=== PATIENT | male | born 2000 | race Caucasian/White ===

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

== ENCOUNTER 2019-01-03 23:39 | Inpatient (IN) | payer BC ==
--- NOTE | 2019-01-04 01:03 | ED ---
Psychiatric Complaint - HPI Summary HPI Summary: A 18 y/o male presents to [facility] with a chief complaint of SI the night of . He reports that he is in the ED mainly involuntarily because his parents told him that they would call the police if he did not get a MHE. The patient says that he texted his friend about his SI, and his friends father then informed the patients parents. The patient reports that he had SI without a plan, but currently has no SI. He says that he takes 80mg Latuda, 100mg Lamictal , 20mg Propanolol, and Trufant. The patient states that he was initially diagnosed as bipolar, but upon a later psych evaluation he was told that he is not bipolar but that he is depressed. He has been admitted to psych before. - History Of Current Complaint Chief Complaint: EDMentalHealth Time Seen by Provider: 01/04/19 00:39 Hx Obtained From: Patient Onset/Duration: Sudden Onset, Lasting Hours, Resolved Timing: Hours Severity Initially: Mild Severity Currently: None Character: Depressed Aggravating Factor(s): Nothing Alleviating Factor(s): Nothing Associated Signs And Symptoms: Positive: Negative Related History: Positive For: Prior Psychiatric Issues Has Suicidal: Reports: Thoughts - EMS EDUCATOR but not currently. Denies: With A Plan Has Homicidal: Denies: Thoughts - Allergies/Home Medications Allergies/Adverse Reactions: Allergies Allergy/AdvReac Type Severity Reaction Status Date / Time No Known Allergies Allergy Verified 01/03/19 23:45 Home Medications: Home Medications Lamictal 100 mg PO QAM 01/04/19 [History Confirmed 01/04/19] Latuda 80 mg PO BEDTIME 01/04/19 [History Confirmed 01/04/19] Trufant 300 mg PO QAM 01/04/19 [History Confirmed 01/04/19] Trufant 600 mg PO BEDTIME 01/04/19 [History Confirmed 01/04/19] Propranolol HCl 20 mg PO PRN 01/04/19 [History] PMH/Surg Hx/FS Hx/Imm Hx Endocrine/Hematology History: Denies: Hx Diabetes, Hx Thyroid Disease Cardiovascular History: Denies: Hx Hypertension, Hx Pacemaker/ICD Respiratory History: Denies: Hx Asthma, Hx Chronic Obstructive Pulmonary Disease (COPD) GI History: Denies: Hx Ulcer History: Denies: Hx Renal Disease Musculoskeletal History: Reports: Other Musculoskeletal History - current left knee issue Sensory History: Denies: Hx Contacts or Glasses, Hx Hearing Aid Opthamlomology History: Denies: Hx Contacts or Glasses Psychiatric History: Reports: Hx Anxiety, Hx Eating Disorder, Hx Depression Denies: Hx Panic Disorder, Hx Inpatient Treatment, Hx Community Mental Health Tx - none prior to [facility] - Surgical History Surgery Procedure, Year, and Place: L knee Hx Anesthesia Reactions: No - never had surgery - Immunization History Date of Tetanus Vaccine: utd Date of Influenza Vaccine: unk Infectious Disease History: No Infectious Disease History: Denies: Hx Clostridium Difficile, Hx Hepatitis, Hx Human Immunodeficiency Virus (HIV), Hx of Known/Suspected MRSA, Hx Tuberculosis, Traveled Outside the [place] in Last 30 Days - Family History Known Family History: Positive: Other - Seasonal depression Negative: Diabetes - Social History Alcohol Use: Rare Hx Substance Use: No Substance Use Type: Reports: None Substance Use Comment - Amount & Last Used: 2 weeks ago, unknown amount Hx Tobacco Use: No Smoking Status (MU): Never Smoked Tobacco Review of Systems Negative: Fever Positive: Other - positive: had SI without a plan EMS EDUCATOR, but has no current SI All Other Systems Reviewed And Are Negative: Yes Physical Exam - Summary Physical Exam Summary: VITAL SIGNS: Reviewed. GENERAL: Patient is a well-developed and nourished MALE who is lying comfortable in the stretcher. Patient is not in any acute respiratory distress. HEAD AND FACE: No signs of trauma. No ecchymosis, hematomas or skull depressions. No sinus tenderness. EYES: PERRLA, EOMI x 2, No injected conjunctiva, no nystagmus. EARS: Hearing grossly intact. Ear canals and tympanic membranes are within normal limits. MOUTH: Oropharynx within normal limits. NECK: Supple, trachea is midline, no adenopathy, no JVD, no carotid bruit, no c- spine tenderness, neck with full ROM CHEST: Symmetric, no tenderness at palpation LUNGS: Clear to auscultation bilaterally. No wheezing or crackles. CVS: Regular rate and rhythm, S1 and S2 present, no murmurs or gallops appreciated. ABDOMEN: Soft, non-tender. No signs of distention. No rebound no guarding, and no masses palpated. Bowel sounds are normal. EXTREMITIES: FROM in all major joints, no edema, no cyanosis or clubbing. NEURO: Alert and oriented x 3. No acute neurological deficits. Speech is normal and follows commands. SKIN: Dry and warm Psych: Pt is not suicidal now but reports that he was suicidal Triage Information Reviewed: Yes Vital Signs On Initial Exam: Initial Vitals Temp Pulse Resp BP Pulse Ox 98.7 F 78 16 145/79 97 01/03/19 23:40 01/03/19 23:40 01/03/19 23:40 01/03/19 23:40 01/03/19 23:40 Vital Signs Reviewed: Yes Diagnostics - Vital Signs Vital Signs Temp Pulse Resp BP Pulse Ox 01/03/19 23:40 98.7 F 78 16 145/79 97 - Laboratory Result Diagrams: 01/04/19 01:32 01/04/19 01:32 Lab Statement: Any lab studies that have been ordered have been reviewed, and results considered in the medical decision making process. Re-Evaluation - Re-Evaluation First Eval Re-Evaluation Time: 02:45 Change: Unchanged Comment: Pt medically cleared for MHE. Course/Dx - Course Course Of Treatment: A 18 y/o male presents to [facility] with a chief complaint of SI the night of 01/03/19. He denies any current SI. The physical exam revealed that the Pt is not suicidal now but reports that he was suicidal. Bloodwork, chemistries, urines and toxicology obtained. Trufant of 0.31 at 01:32. The patient has been medically cleared for MHE. Per mental health clinical sales consultant, Dr. Winston has decided that the patient will be an involuntary admit. Dx: depression. Since there are no current beds available, the patient will be placed on mental health hold. This patient will be signed out from Dr. Beavers to Dr. Neff at 07:00 01/04/19 pending admission. - Differential Dx/Clinical Impression Provider Diagnosis: Depression - Physician Notifications Discussed Care Of Patient With: Cong Winston Time Discussed With Above Provider: 03:43 Instructed by Provider To: Other - Per mental health clinical sales consultant, Dr. Winston has decided that the patient will be an involuntary admit. Dx: depression Discharge - Sign-Out/Discharge Documenting (check all that apply): Sign-Out Patient Signing out patient TO: Jose Neff - pending admission Patient Received Moderate/Deep Sedation with Procedure: No - Discharge Plan Condition: Stable Referrals: Mira Segura FACILITY MAINTENANCE MANAGER [Primary Care Provider] - - Billing Disposition and Condition Condition: STABLE - Attestation Statements Document Initiated by Scribe: Yes Documenting Scribe: Eliel Marcus Provider For Whom Alma is Documenting (Include Credential): Celeste Beavers MD Scribe Attestation: Eliel Charles, scribed for Celeste Beavers MD on 01/04/19 at 0549. Scribe Documentation Reviewed: Yes Provider Attestation: The documentation as recorded by the Eliel celestin accurately reflects the service I personally performed and the decisions made by me, Celeste Beavers MD Status of Scribe Document: Viewed
[2019-01-04 01:41] LABS: ABS Basophils 0.1 10^3/ul (0-0.2); ABS Eosinophils 0.5 10^3/ul (0-0.6); ABS Monocytes 0.9 10^3/ul (0-0.8); ABS Neutrophils 6.7 10^3/ul (1.5-7.7); Eosinophil % 4.4 %; Hematocrit 43 % (42-52); Hemoglobin 14.6 g/dL (14.0-18.0); Lymphocyte % 27.1 %; Mean Corpuscular HGB Conc 34 g/dL (31-36); Mean Corpuscular Hemoglobin 30 pg (27-31); Mean Corpuscular Volume 90 fL (80-94); Mean Platelet Volume 7.5 fL (7.4-10.4); Platelet Count 307 10^3/uL (150-450); Red Blood Count 4.83 10^6 /uL (4.18-5.48); Red Cell Distribution Width 13 % (10-15); White Blood Count 11.2 10^3/uL (3.5-10.8)
[2019-01-04 01:59] LABS: ALT 16 U/L (7-52); Albumin 4.4 g/dL (3.2-5.2); Albumin/Globulin Ratio 1.8 (1-3); Alkaline Phosphatase 76 U/L (34-104); BUN/Creatinine Ratio 15.1 (8-20); Blood Urea Nitrogen 18 mg/dL (6-24); CO2 Carbon Dioxide 29 mmol/L (22-32); Chloride 105 mmol/L (101-111); EGFR African American 95.3 (>60); EGFR Non-African American 78.8 (>60); Globulin 2.4 g/dL (2-4); Glucose 101 mg/dL (70-100); Sodium 139 mmol/L (135-145); Total Protein 6.8 g/dL (6.4-8.9)
[2019-01-04 02:06] LABS: Urine Appearance Cloudy; Urine Bilirubin Negative (Negative); Urine Blood Negative (Negative); Urine Color Yellow; Urine Glucose Negative (Negative); Urine Ketones Negative (Negative); Urine Nitrite Negative (Negative); Urine Protein Negative (Negative); Urine Specific Gravity 1.019 (1.010-1.030); Urine Urobilinogen Negative (Negative)
[2019-01-04 02:18] LABS: Acetaminophen < 15 mcg/mL; Alcohol < 10 mg/dL (<10); Lithium 0.31 mmol/L (0.6-1.2); Salicylate < 2.50 mg/dL (<30)
[2019-01-04 02:25] LABS: AST 16 U/L (13-39); Anion Gap 5 mmol/L (2-11); Potassium 4.1 mmol/L (3.5-5.0)
[2019-01-04 02:28] LABS: Urine Benzodiazepine Screen None Detected (None Detect); Urine Opiates Screen None Detected (None Detect)
[2019-01-04 02:34] LABS: TSH (Thyroid Stimulating Horm) 1.85 mcIU/mL (0.34-5.60)
--- NOTE | 2019-01-04 07:04 | ED ---
Progress - Progress Note Progress Note: This pt is signed out from Dr. Beavers to Dr. Neff pending admission to [facility] due to lack of beds at shift change 01/04/19 at 0700. - Consult/PCP Time Called: 13:05 Consult/PCP: Dr. Chacko Course/Dx - Course Course Of Treatment: A 18 y/o male presents to [facility] with a chief complaint of SI the night of 01/03/19. He denies any current SI. The physical exam revealed that the Pt is not suicidal now but reports that he was suicidal. Bloodwork, chemistries, urines and toxicology obtained. [place] of 0.31 at 01:32. The patient has been medically cleared for MHE. Per mental health commercial sales director, Dr. Winston has decided that the patient will be an involuntary admit. Dx: depression. Since there are no current beds available, the patient will be placed on mental health hold. This patient will be signed out from Dr. Beavers to Dr. Neff at 07:00 01/04/19 pending admission. - Diagnoses Provider Diagnoses: Depression - Provider Notifications Discussed Care Of Patient With: Fitz Chacko Time Discussed With Above Provider: 13:05 Instructed by Provider To: Admit As Inpatient - Pt will be admitted to [facility] Psych george per Dr. Chacko, psychiatrist, involuntarily. Discharge - Sign-Out/Discharge Documenting (check all that apply): Patient Departure - admitted All imaging exams completed and their final reports reviewed: Yes Patient Received Moderate/Deep Sedation with Procedure: No - Discharge Plan Condition: Stable Disposition: ADMITTED TO [facility] - Billing Disposition and Condition Condition: STABLE Disposition: Admitted to [facility] - Attestation Statements Document Initiated by Alma: Yes Documenting Scribe: Buzz Law Provider For Whom Alma is Documenting (Include Credential): Jose Neff MD Scribanthony Attestation: Buzz Charles scribed for Jose Neff MD on 01/04/19 at 1545. Scribe Documentation Reviewed: Yes Provider Attestation: The documentation as recorded by the Buzz celestin accurately reflects the service I personally performed and the decisions made by me, Jose Neff MD Status of Scribe Document: Viewed
--- NOTE | 2019-01-04 07:13 | PN ---
ED Flex Patient Progress Note Date of Service: 01/03/19 Subjective: This is a 18 year-old M who is pending admission to [facility] / transfer to another psychiatric facility / discharge to home / or being observed secondary to depression. Pt. examined in room 6 at 0720. He is sleeping comfortably. Objective: Vitals: Most recent vital signs documented below. General NAD Laboratory: Current laboratory results documented below. Assessment: Depression. Plan: Plan for admission to [facility]. Morning medications ordered. Vital Signs Temp Pulse Resp BP Pulse Ox 98.9 F 58 18 140/49 96 01/04/19 05:30 01/04/19 05:30 01/04/19 05:30 01/04/19 05:30 01/04/19 05:30 Lab Results - Entire Visit 01/04/19 01/04/19 01/04/19 01:56 01:56 01:32 WBC RBC Hgb Hct MCV MCH MCHC RDW Plt Count MPV Neut % (Auto) Lymph % (Auto) Arroyo % (Auto) Eos % (Auto) Baso % (Auto) Absolute Neuts (auto) Absolute Lymphs (auto) Absolute Monos (auto) Absolute Eos (auto) Absolute Basos (auto) Absolute Nucleated RBC Nucleated RBC % Sodium 139 Potassium 4.1 Chloride 105 Carbon Dioxide 29 Anion Gap 5 BUN 18 Creatinine 1.19 H Est GFR ( Amer) 95.3 Est GFR (Non-Af Amer) 78.8 BUN/Creatinine Ratio 15.1 Glucose 101 H Calcium 10.0 Total Bilirubin 0.40 AST 16 ALT 16 Alkaline Phosphatase 76 Total Protein 6.8 Albumin 4.4 Globulin 2.4 Albumin/Globulin Ratio 1.8 TSH 1.85 Urine Color Yellow Urine Appearance Cloudy Urine pH 6.0 Ur Specific [place] 1.019 Urine Protein Negative Urine Ketones Negative Urine Blood Negative Urine Nitrate Negative Urine Bilirubin Negative Urine Urobilinogen Negative Ur Leukocyte Esterase Negative Urine Glucose Negative Salicylates < 2.50 Urine Opiates Screen None detected Acetaminophen < 15 Ur Barbiturates Screen None detected Ur Phencyclidine Scrn None detected Ur Amphetamines Screen None detected U Benzodiazepines Scrn None detected [employer] 0.31 L Urine Cocaine Screen None detected U Cannabinoids Screen Presumptive positive A Serum Alcohol < 10 01/04/19 01:32 WBC 11.2 H RBC 4.83 Hgb 14.6 Hct 43 MCV 90 MCH 30 MCHC 34 RDW 13 Plt Count 307 MPV 7.5 Neut % (Auto) 59.9 Lymph % (Auto) 27.1 Arroyo % (Auto) 7.9 Eos % (Auto) 4.4 Baso % (Auto) 0.7 Absolute Neuts (auto) 6.7 Absolute Lymphs (auto) 3.0 Absolute Monos (auto) 0.9 H Absolute Eos (auto) 0.5 Absolute Basos (auto) 0.1 Absolute Nucleated RBC 0.0 Nucleated RBC % 0.0 Sodium Potassium Chloride Carbon Dioxide Anion Gap BUN Creatinine Est GFR ( Amer) Est GFR (Non-Af Amer) BUN/Creatinine Ratio Glucose Calcium Total Bilirubin AST ALT Alkaline Phosphatase Total Protein Albumin Globulin Albumin/Globulin Ratio TSH Urine Color Urine Appearance Urine pH Ur Specific [place] Urine Protein Urine Ketones Urine Blood Urine Nitrate Urine Bilirubin Urine Urobilinogen Ur Leukocyte Esterase Urine Glucose Salicylates Urine Opiates Screen Acetaminophen Ur Barbiturates Screen Ur Phencyclidine Scrn Ur Amphetamines Screen U Benzodiazepines Scrn [employer] Urine Cocaine Screen U Cannabinoids Screen Serum Alcohol
[2019-01-04] MEDS ORDERED: Lithium Carbonate TAB* 300 MG PO ONE ×2 (07:14→07:26)
[2019-01-04] MEDS ORDERED: lamoTRIgine TAB(*) 100 MG PO ONE ×2 (07:14→07:26)
--- NOTE | 2019-01-04 14:45 | HP ---
H&P (Free Text) History and Physical: Justification for admission: Immediate Safety. CC " I sent a text to my friend " The patient was brought to [facility] by his parents. He told a friend of his that he was suicidal and was going to hang himself , who then informed his parents of the text message that Mr. Roblero sent . He stated that he did not need to be here and that his parents are over reacting. He noted that he recently received a order of protection from his ex girlfriend upon telling a friend he was going to kill her (his ex girlfriend Garrochales) and then himself. The [place] police were informed and called and interviewed Mr. Roblero. Upon interviewing Mr. Roblero he denied having homicidal thoughts, intent or plan towards Shaniqua. He reported that in the past he has had thoughts about hurting others but that he has not recently thought of hurting others. He denied access to firearms or stockpiles of medications. He reported improvement of sleep with Latuda and gets on average 8 hours of sleep. He reported having adequate appetite. The patient denied homicidal ideation intent or plan. The patient denied auditory and/ or visual hallucinations. He reported feeling depressed starting 10 months ago when his girlfriend broke up with him and told him to kill himself. He is refusing to have staff obtain collateral information from his parents.Although, the patients mother sent a letter to one of the social workers stating that Mr. Roblero recently saw his ex girlfriends current boyfriend at the gym and made him feel intimidated. Mr. Roblero denied recent rash or skin changes from medication. He reported being compliant with medication. Recently he has been cutting his forearm with a razor to relieve anxiety. MDD He reported feeling depressed. Denied having diminished interests which were found to be enjoyable in the past such as hanging out with friends. He reported having feelings of hopelessness, and worthlessness. He denied unintentional weight loss and appetite. Denied interruption of sleep , or feeling tired throughout the day. Denied loss of energy or lack of motivation to complete tasks. Denied recurrent thoughts of . He reported that some days he would be better off . Anxiety He reported feeling restless, high strung, or worrying too much most of the time and calms himself by cutting his wrist. He reported having thought intrusions and ruminating about his prior relationship 7 months after the relationship ended. Bipolar Denied symptoms of terry such as having many ideas at once. Denied increased talkativeness where no one can interrupt. Denied feeling irritable most of the time while having an persistent abundance of energy most of the day without the use of energy drinks, stimulants, or recreational drug use. Denied an increase in intensity in goal directed activities. Denied having the decreased need to sleep for days , having prolonged elevated heighted mood , or feeling on top of the world. Denied impulsive risky sexual encounters. Denied spending money recklessly , going on spending sprees wiping out savings. Denied impulsively traveling out of town or country, having super berrios, and unrealistic wealth or fame. Psychosis Does not endorse hearing things that other people do not hear or seeing things other people do not see. Denied feeling that TV is making references. Denied feeling that people are spying , following , or reading their thoughts. Phobias: Patient denied having excessive fear of a particular thing or situation. Eating disorders: Patient denied having excessive eating habits or feelings of guilt after eating. Denied repeated episodes of self induced vomiting after eating. PTSD Denied flashbacks, nightmares and avoidance of a prior traumatic event. PAST PSYCHIATRIC HISTORY: Prior Diagnosis : Bipolar I, Bipolar 2, unspecified mood disorder, Major depressive Disorder. History of past Psychiatric Hospitalizations: prior hospitalization May 2018 History of past suicide/homicide attempts : 2 past suicide attempts. 10 months ago attempted to hang himself with a bungee cord. August attempted to cut his wrist Denied past homicidal incidents. Outpatient follow-up: Henny Denis NP Medications: Past trials of medications include Latuda 80mg daily , lamictal 100mg daily, propranolol 10mg BID, [place] 300mg QAM and 600mg qhs. Guardianship: None. FAMILY HISTORY: - Suicide: Denied family history of suicide. - Mental illness: Bipolar Disorder in grandfather on fathers side - Substance abuse: 2 cousins and his uncle struggle with alcohol abuse SUBSTANCE ABUSE HISTORY: Denied using alcohol, tobacco, heroin cocaine or other illicit substances. Denied recreationally abusing pills. Denied past Substance abuse treatment. SOCIAL HISTORY: - He describes his Childhood as " good." He denied a history of physical and or sexual abuse Born and raised in [facility] recently graduated high school. Following his last admission he took a medical leave from college. 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 He plans to start school [employer] in the fall. - Education: High school - Living situation: Lives with parents in [place] - Relationship: Single no children - Legal history: Recent order of protection served to him from his ex girlfriend. - service history: Denied PAST MEDICAL HISTORY: Denied heart disease, diabetes, cancer and/ or other medical conditions. - Allergies: Pollen and grass no drug allergies. Physical Exam: Please see ED note Mental Status Exam on Admission APPEARANCE : 18 year old male who appears stated age. Patient is not malodourous, and appears to have fair hygiene and grooming. Multiple cuts over his left forearm BEHAVIOR: Cooperative , calm EYE CONTACT: Fair PSYCHOMOTOR ACTIVITY: No psychomotor agitation or retardation. MOVEMENTS: No abnormal movements observed. SPEECH : Normal rate, rhythm, volume and tone. MOOD : "Fine " AFFECT : Type is depressed Range is restricted with shallow depth Mood Incongruent Stable THOUGHT PROCESS: Formulated and organized in a logical, linear goal directed manner. No flight of ideas, neologism (made up words) , perseveration , tangential , loose associations , or circumstantiality. THOUGHT CONTENT: preoccupation with past relationship. PERCEPTION: No current auditory or visual hallucinations. Doesnt appear to be responding to internal cues. No evidence of depersonalization , de-realization, or illusions SUICIDALITY Recent suicidal ideation HOMICIDALITY Denied homicidal ideation, intent or plan. Insight/judgment: Poor insight and judgment ORIENTATION: Oriented to self, location, and time. Diagnosis on Admission: Major depressive Disorder, Rule out mood disorder and OCD Assessment: 18 year old male with a history of unspecified mood disorder was brought to the hospital by his parents for suicidal ideation and was admitted to the BSU at [facility]. Plan #Admit to BSU, Q15 minute observation. Start regular diet. Encourage participation in activities on the milieu. #Patient evaluated in ED and was determined by the emergency room Physician to be medically fit for admission to the BSU. # Justification for Admission: For immediate safety per outlined in the [place] Mental Hygiene Code. # The patient requires inpatient admission at this time to assure safety, receive treatment and work toward stabilization. # Labs ordered: CBC, CMP, UDS, TSH, HBA1c, TSH, Toxicology screen, Urine analysis, and lipid profile. EKG ordered for risk of QT prolongation of antipsychotic medication. # Unable to Obtain collateral information due to patient refusing to sign release. # Collaboration with Social Work to assist with disposition and after care. # Will restart home medications. Will monitor for skin changes. #MMPI #Goals before discharge include: To eliminate/ reduce suicidal ideation The risks, benefits, and alternative treatment options were discussed as well as of the risks of refusing treatment. After this discussion and an acknowledgement of this understanding was made. A risk/ benefit assessment of treatment was considered and discussed with the patient. When comparing the risks of treatment with the dangers of not receiving treatment, the benefits of treatment outweigh the treatment risks at this time. Risks of allergy, suicidal ideation, behavioral changes, dystonia, rashes, electrolyte imbalances, movement disorders, cardiac conduction changes, serotonin syndrome, metabolic risks and NMS were among some of the risks discussed.
[2019-01-04] MEDS ORDERED: Acetaminophen TAB* 325 MG PO PRN (14:49)
[2019-01-04] MEDS ORDERED: Al Hydrox/Mg Hydrox/Simet LIQ* 30 ML UDC PO PRN (14:49)
[2019-01-04] MEDS: Lurasidone(*) 80 MG TAB PO SCH (17:45)
[2019-01-04] MEDS: Lithium Carbonate TAB* 300 MG PO SCH (21:52)
[2019-01-04] MEDS: Propranolol TAB* 10 MG PO SCH (21:52)
[2019-01-05 06:30] LABS: HDL Cholesterol 34.2 mg/dL
[2019-01-05] MEDS: Lithium Carbonate TAB* 300 MG PO SCH ×2 (08:39→21:16)
[2019-01-05] MEDS: Propranolol TAB* 10 MG PO SCH ×2 (08:39→21:16)
[2019-01-05] MEDS: Vitamin THERAPEUTIC TAB PO SCH (08:39)
[2019-01-05] MEDS: lamoTRIgine TAB(*) 100 MG PO SCH (08:39)
--- NOTE | 2019-01-05 16:48 | PN ---
Subjective - Subjective Date of Service: 01/05/19 Service Type: 20155 Hosp care 15 min low complexity Subjective: Freddie is seen in weekend coverage for Dr. Tineo. The patient appears to be in good spirits, enjoying a game of ping-pong with staff. He is cooperative but very minimizing towards the circumstances of his admission. "I'm just here because my parents overreacted. I don't want to hurt myself or anybody else." He is tolerating his medications well and is adherent with milieu expectations per staff. This clinician received a phone call from the patient's ex- girlfriend, Shaniqua Pradhan, who has an active restraining order against him. Her report is that they broke up a year ago and he has gotten progressively more depressed and hopeless since then. She first became concerned about his mental health when he told her sometime last year that he had access to a pistol owned by his parents and was thinking of putting it in his mouth and shooting himself. Later in the year, around , he asked her to drive him to [facility] due to SI and she is aware that he was briefly admitted on the BSU at that time. "It didn't seem to do anything for him. If anything he got worse." In the new year his sporadic communication with her started getting more abusive, with texts blaming her for the breakup and his subsequent mental problems. She essentially stopped responding to his phone calls and texts at that time and hadn't heard from him in awhile. This current episode started when Freddie saw her new boyfriend at the gym. Freddie allegedly sat down next to the young man on a rowing machine and started mimicking his movements in a way that made the new partner feel threatened. Shaniqua later got a text message from a mutual friend of her's and Erica that Freddie had made a statement that he would murder her and then kill himself. She notified her parents and the OOP was initiated through family court. I asked if the patient had ever threatened her before and she states that he did admit to her in the lead up to his hospitalization here in May that he had had HI toward her, but didn't share any details and she didn't take it seriously then. She's unaware of any actual history of violence towards others, but does recall him sharing self- harm episodes with her. Once, for example, he showed her some photos of cuts he had made to his arms. There was allegedly an episode when he was 11 when he tried to hang himself with a bungee cord. The ex-girlfriend does feel strongly that he is a risk to himself and, potentially, her. She states that his parents are very controlling towards him and that he tends to feel misunderstood and not listened to by others. Objective - General Observations Appearance: Well Groomed Stature: WNL Posture: WNL Eye Contact: Average Behavior/Activity: WNL - Interaction Observations Attitude Towards Examiner: Ingratiating, Dismissive Stated Mood: Euthymic Affect: Restricted Speech Pattern/Tone: Clear, Appropriate, Normal Volume Thought Process: Coherent Thought Content: WNL Hallucination Type: None Delusion Type: None - Cognitive Function Orientation: A&O x 4 Level of Consciousness: Awake Cognition: WNL Estimated Intelligence: Normal Insight: WNL Judgment Within Normal Limits: No Ability to Make Reasonable Decisions: Moderately Impaired - Medication Compliance Cooperative with Inpatient Medication Regimen: Yes - Group Participation Participates in Group Activities: Yes Assessment - Assessment Merits Inpatient Hospitalization: For Immediate Safety, For Stabilization Inpatient DSM-V Dx: F32.9 Clinical Impression: 18 y.o. single, white male with a history of major depression and one previous suicide attempt brought in on involuntary status following an admission by the patient that he was considering murdering his ex-girlfriend and then committing suicide. BSU: Problem List - Patient Problems (1) Major depressive disorder Current Visit: No Status: Acute Code(s): F32.9 - MAJOR DEPRESSIVE DISORDER, SINGLE EPISODE, UNSPECIFIED SNOMED Code(s): 171960463 Plan - Plan Treatment Plan: Name: FREDDIE CASTILLO Birthdate: 2000 [id number] The patient has been placed back on his outpatient regimen of lurasidone, lamotrigine and propranolol. Patient requires further inpatient treatment for safety, risk stratification, discharge planning and resolution of SI/HI. Continued Medication Management: Continue Outpt Medication Medications: Current Medications Acetaminophen (Tylenol Tab*) 650 mg PO Q4H PRN PRN Reason: PAIN or TEMP > 101 F Al Hydrox/Mg Hydrox/Simethicone (Maalox Plus*) 30 ml PO Q4H PRN PRN Reason: INDIGESTION Lamotrigine (Lamictal Tab(*)) 100 mg PO 0900 [facility] Last Admin: 01/05/19 08:39 Dose: 100 mg Cesar Chavez Carbonate (Cesar Chavez Carbonate Tab*) 300 mg PO 0900 [facility] Last Admin: 01/05/19 08:39 Dose: 300 mg Cesar Chavez Carbonate (Cesar Chavez Carbonate Tab*) 600 mg PO 2100 [facility] Last Admin: 01/04/19 21:52 Dose: 600 mg Lurasidone HCl (Latuda) 80 mg PO 1700 [facility] Last Admin: 01/04/19 17:45 Dose: 80 mg Multivitamins (Theragran Tab*) 1 tab PO DAILY [facility] Last Admin: 01/05/19 08:39 Dose: 1 tab Propranolol HCl (Inderal Tab*) 10 mg PO BID [facility] Last Admin: 01/05/19 08:39 Dose: 10 mg - Discharge Plan Discharge Plan: Inpatient Hospitalization Lab Results - Lab Results Lab Results: 01/04/19 01/04/19 01/04/19 01:32 01:32 01:56 WBC 11.2 H RBC 4.83 Hgb 14.6 Hct 43 MCV 90 MCH 30 MCHC 34 RDW 13 Plt Count 307 MPV 7.5 Neut % (Auto) 59.9 Lymph % (Auto) 27.1 Arthur % (Auto) 7.9 Eos % (Auto) 4.4 Baso % (Auto) 0.7 Absolute Neuts (auto) 6.7 Absolute Lymphs (auto) 3.0 Absolute Monos (auto) 0.9 H Absolute Eos (auto) 0.5 Absolute Basos (auto) 0.1 Absolute Nucleated RBC 0.0 Nucleated RBC % 0.0 Sodium 139 Potassium 4.1 Chloride 105 Carbon Dioxide 29 Anion Gap 5 BUN 18 Creatinine 1.19 H Est GFR ( Amer) 95.3 Est GFR (Non-Af Amer) 78.8 BUN/Creatinine Ratio 15.1 Glucose 101 H Hemoglobin A1c Calcium 10.0 Total Bilirubin 0.40 AST 16 ALT 16 Alkaline Phosphatase 76 Total Protein 6.8 Albumin 4.4 Globulin 2.4 Albumin/Globulin Ratio 1.8 Triglycerides Cholesterol LDL Cholesterol HDL Cholesterol TSH 1.85 Urine Color Yellow Urine Appearance Cloudy Urine pH 6.0 Ur Specific [place] 1.019 Urine Protein Negative Urine Ketones Negative Urine Blood Negative Urine Nitrate Negative Urine Bilirubin Negative Urine Urobilinogen Negative Ur Leukocyte Esterase Negative Urine Glucose Negative Salicylates < 2.50 Urine Opiates Screen Acetaminophen < 15 Ur Barbiturates Screen Ur Phencyclidine Scrn Ur Amphetamines Screen U Benzodiazepines Scrn Cesar Chavez 0.31 L Urine Cocaine Screen U Cannabinoids Screen Serum Alcohol < 10 01/04/19 01/05/19 01/05/19 01:56 06:07 06:07 WBC RBC Hgb Hct MCV MCH MCHC RDW Plt Count MPV Neut % (Auto) Lymph % (Auto) Arthur % (Auto) Eos % (Auto) Baso % (Auto) Absolute Neuts (auto) Absolute Lymphs (auto) Absolute Monos (auto) Absolute Eos (auto) Absolute Basos (auto) Absolute Nucleated RBC Nucleated RBC % Sodium Potassium Chloride Carbon Dioxide Anion Gap BUN Creatinine Est GFR ( Amer) Est GFR (Non-Af Amer) BUN/Creatinine Ratio Glucose Hemoglobin A1c 5.1 Calcium Total Bilirubin AST ALT Alkaline Phosphatase Total Protein Albumin Globulin Albumin/Globulin Ratio Triglycerides 88 Cholesterol 171 LDL Cholesterol 119 HDL Cholesterol 34.2 TSH Urine Color Urine Appearance Urine pH Ur Specific [place] Urine Protein Urine Ketones Urine Blood Urine Nitrate Urine Bilirubin Urine Urobilinogen Ur Leukocyte Esterase Urine Glucose Salicylates Urine Opiates Screen None detected Acetaminophen Ur Barbiturates Screen None detected Ur Phencyclidine Scrn None detected Ur Amphetamines Screen None detected U Benzodiazepines Scrn None detected Cesar Chavez Urine Cocaine Screen None detected U Cannabinoids Screen Presumptive positive A Serum Alcohol
[2019-01-05] MEDS: Lurasidone(*) 80 MG TAB PO SCH (17:43)
[2019-01-06] MEDS: Propranolol TAB* 10 MG PO SCH ×2 (08:18→20:24)
[2019-01-06] MEDS: Lithium Carbonate TAB* 300 MG PO SCH ×2 (08:18→20:24)
[2019-01-06] MEDS: lamoTRIgine TAB(*) 100 MG PO SCH (08:19)
[2019-01-06] MEDS: Vitamin THERAPEUTIC TAB PO SCH (08:19)
[2019-01-06] MEDS: Lurasidone(*) 80 MG TAB PO SCH (20:24)
[2019-01-07] MEDS: Propranolol TAB* 10 MG PO SCH ×2 (09:32→20:18)
[2019-01-07] MEDS: Lithium Carbonate TAB* 300 MG PO SCH ×2 (09:33→20:18)
[2019-01-07] MEDS: lamoTRIgine TAB(*) 100 MG PO SCH (09:33)
[2019-01-07] MEDS: Vitamin THERAPEUTIC TAB PO SCH (09:33)
--- NOTE | 2019-01-07 11:52 | PN ---
Subjective - Subjective Date of Service: 01/07/19 Service Type: [id number] Hosp care 35 min high complexity Subjective: Nursing Report: Patient was visible on unit, no chemical restraints or PRNs. Slept overnight without incident. He is attending group activities. CC: " Hi Patient was seen and evaluated in the comfort room. The patient stated that he doesnt objectify women, that his ex girlfriend was his first girlfriend, and it was difficult for him to get over. He is no longer physically attracted to her and noted that he doenst think about her in a sexual or violent way and is turned off when he has thoughts of her. He provided a release for collateral to be obtained from his parents. The patient doesnt feel worried about having a order of protection against him but rather feels embarrassed about what his friends will think about it. He said that he puts up a wall from loving his parents. And that he find the best therapist to be a mentor that he met a few years ago. What he admires about him is that he doesnt care what others think of him and is smart and articulate and gives very blunt advice. . Objective - General Observations Appearance: Neat Appears Stated Age: Yes Stature: WNL Posture: WNL, Slumped Behavior/Activity: WNL - Interaction Observations Attitude Towards Examiner: Cooperative Attitude Towards Parent/Guardian: Ignores Parent/Guardian Stated Mood: Dysphoric Affect: Blunted Speech Pattern/Tone: Clear Thought Process: Coherent Perception: WNL Thought Content: Paranoid Thought Process: Lethality: Passive Wish Hallucination Type: None Delusion Type: None - Cognitive Function Orientation: A&O x 4 Level of Consciousness: Awake Cognition: WNL - Medication Compliance Cooperative with Inpatient Medication Regimen: Yes - Group Participation Participates in Group Activities: Yes Assessment - Assessment Inpatient DSM-V Dx: F32.9 Clinical Impression: 18 y.o. single, white male with a history of major depression and one previous suicide attempt brought in on involuntary status following an admission by the patient that he was considering murdering his ex-girlfriend and then committing suicide. Plan - Plan Treatment Plan: Name: FREDDIE CASTILLO Birthdate: 2000 [id number] # Q30 minute observation with Staff pass with computer access # The patient requires inpatient admission at this time to assure safety, receive treatment and work toward stabilization. # Family meeting for tomorrow # Patient signed release for parents, to confirm no access to firearms. #Safe Act completed # Girlfriend and police are already informed of threat and PPO issued # Collaboration with Social Work to assist with disposition and after care. #MMPI ordered indicating paranoia, anger, impulsive. #Goals before discharge include: Eliminate/ reduce suicidal ideation Sodium 139 mmol/L (135-145) 01/04/19 01:32 Potassium 4.1 mmol/L (3.5-5.0) 01/04/19 01:32 BUN 18 mg/dL (6-24) 01/04/19 01:32 Creatinine 1.19 mg/dL (0.67-1.17) H 01/04/19 01:32 Hemoglobin A1c 5.1 % (4.0-5.6) 01/05/19 06:07 Calcium 10.0 mg/dL (8.6-10.3) 01/04/19 01:32 AST 16 U/L (13-39) 01/04/19 01:32 ALT 16 U/L (7-52) 01/04/19 01:32 Triglycerides 88 mg/dL 01/05/19 06:07 Cholesterol 171 mg/dL 01/05/19 06:07 LDL Cholesterol 119 mg/dL 01/05/19 06:07 Vital Signs Temp Pulse Resp BP Pulse Ox 97.8 F 87 16 122/81 100 01/07/19 08:39 01/07/19 08:39 01/07/19 08:39 01/07/19 08:39 01/07/19 08:39 Continued Medication Management: Continue Outpt Medication Medications: Current Medications Acetaminophen (Tylenol Tab*) 650 mg PO Q4H PRN PRN Reason: PAIN or TEMP > 101 F Al Hydrox/Mg Hydrox/Simethicone (Maalox Plus*) 30 ml PO Q4H PRN PRN Reason: INDIGESTION Lamotrigine (Lamictal Tab(*)) 100 mg PO 0900 [facility] Last Admin: 01/07/19 09:33 Dose: 100 mg [place] Carbonate (U[place] Carbonate Tab*) 300 mg PO 0900 [facility] Last Admin: 01/07/19 09:33 Dose: 300 mg [place] Carbonate ([place] Carbonate Tab*) 600 mg PO 2100 [facility] Last Admin: 01/06/19 20:24 Dose: 600 mg Lurasidone HCl (Latuda) 80 mg PO 2100 [facility] Multivitamins (Theragran Tab*) 1 tab PO DAILY [facility] Last Admin: 01/07/19 09:33 Dose: 1 tab Propranolol HCl (Inderal Tab*) 10 mg PO BID [facility] Last Admin: 01/07/19 09:32 Dose: 10 mg - Discharge Plan Discharge Plan: Inpatient Hospitalization
[2019-01-07] MEDS: Lurasidone(*) 80 MG TAB PO SCH (21:20)
[2019-01-08] MEDS: Vitamin THERAPEUTIC TAB PO SCH (08:48)
[2019-01-08] MEDS: Propranolol TAB* 10 MG PO SCH ×2 (08:48→21:46)
[2019-01-08] MEDS: lamoTRIgine TAB(*) 100 MG PO SCH (08:48)
[2019-01-08] MEDS: Lithium Carbonate TAB* 300 MG PO SCH ×2 (08:49→21:47)
--- NOTE | 2019-01-08 16:08 | PN ---
Subjective - Subjective Date of Service: 01/08/19 Service Type: 32153 Hosp care 35 min high complexity Subjective: Nursing Report: Patient was visible on unit, no chemical restraints or PRNs. Slept overnight without incident. He is attending group activities. CC: " Fine Patient was seen and evaluated in the comfort room. The patient stated that he would go to [place] for intensive outpatient treatment. He reported that he knew that is what his parents wanted anyway so feels that he doesnt have a voice. He reported that his one friend is the best therapist for him, and he plans to talk to him once a week. Objective - General Observations Appearance: Neat Appears Stated Age: Yes Stature: WNL Posture: WNL Eye Contact: Average Behavior/Activity: WNL - Interaction Observations Attitude Towards Examiner: Cooperative Stated Mood: Anxious Affect: Blunted Speech Pattern/Tone: Clear Thought Process: Coherent Perception: WNL Thought Content: Self-Deprecatory Thought Process: Lethality: Paranoid Ideation Hallucination Type: None Delusion Type: None - Cognitive Function Orientation: A&O x 4 Level of Consciousness: Awake Cognition: WNL - Medication Compliance Cooperative with Inpatient Medication Regimen: Yes - Group Participation Participates in Group Activities: Yes Assessment - Assessment Inpatient DSM-V Dx: F32.9 Clinical Impression: 18 y.o. single, white male with a history of major depression and one previous suicide attempt brought in on involuntary status following an admission by the patient that he was considering murdering his ex-girlfriend and then committing suicide. Plan - Plan Treatment Plan: Name: FREDDIE CASTILLO Birthdate: 2000 [id number] # Q30 minute observation with Staff pass with computer access # The patient requires inpatient admission at this time to assure safety, receive treatment and work toward stabilization. # Family meeting took place. Patient is in agreement with intensive outpatient treatment in [place] following discharge # Patient signed release for parents, to confirm no access to firearms. #Safe Act completed # Girlfriend and police are already informed of threat and PPO issued # Collaboration with Social Work to assist with disposition and after care. #MMPI ordered indicating paranoia, anger, impulsive. #Start clomipramine 25mg daily and monitor for SS #Goals before discharge include: Eliminate/ reduce suicidal ideation Tentative Discharge Sodium 139 mmol/L (135-145) 01/04/19 01:32 Potassium 4.1 mmol/L (3.5-5.0) 01/04/19 01:32 BUN 18 mg/dL (6-24) 01/04/19 01:32 Creatinine 1.19 mg/dL (0.67-1.17) H 01/04/19 01:32 Hemoglobin A1c 5.1 % (4.0-5.6) 01/05/19 06:07 Calcium 10.0 mg/dL (8.6-10.3) 01/04/19 01:32 AST 16 U/L (13-39) 01/04/19 01:32 ALT 16 U/L (7-52) 01/04/19 01:32 Triglycerides 88 mg/dL 01/05/19 06:07 Cholesterol 171 mg/dL 01/05/19 06:07 LDL Cholesterol 119 mg/dL 01/05/19 06:07 Vital Signs Temp Pulse Resp BP Pulse Ox 98.5 F 59 16 109/52 99 01/08/19 08:00 01/08/19 08:00 01/08/19 11:20 01/08/19 08:00 01/08/19 08:00 Continued Medication Management: Continue Outpt Medication Medications: Current Medications Acetaminophen (Tylenol Tab*) 650 mg PO Q4H PRN PRN Reason: PAIN or TEMP > 101 F Al Hydrox/Mg Hydrox/Simethicone (Maalox Plus*) 30 ml PO Q4H PRN PRN Reason: INDIGESTION Lamotrigine (Lamictal Tab(*)) 100 mg PO 0900 [facility] Last Admin: 01/08/19 08:48 Dose: 100 mg [place] Carbonate ([place] Carbonate Tab*) 300 mg PO 0900 [facility] Last Admin: 01/08/19 08:49 Dose: 300 mg [place] Carbonate ([place] Carbonate Tab*) 600 mg PO 2100 [facility] Last Admin: 01/07/19 20:18 Dose: 600 mg Lurasidone HCl (Latuda) 80 mg PO 2100 [facility] Last Admin: 01/07/19 21:20 Dose: 80 mg Multivitamins (Theragran Tab*) 1 tab PO DAILY [facility] Last Admin: 01/08/19 08:48 Dose: 1 tab Propranolol HCl (Inderal Tab*) 10 mg PO BID [facility] Last Admin: 01/08/19 08:48 Dose: 10 mg - Discharge Plan Discharge Plan: Inpatient Hospitalization
[2019-01-08] MEDS ORDERED: CMCS:ClomiPRAMINE (NF) 25 MG CAP PO ONE (17:00)
[2019-01-08] MEDS: Lurasidone(*) 80 MG TAB PO SCH (21:46)
--- NOTE | 2019-01-09 08:32 | PN ---
Subjective - Subjective Date of Service: 01/09/19 Service Type: [id number] Hosp care 35 min high complexity Subjective: Nursing Report: Patient was visible on unit, no chemical restraints or PRNs. Slept overnight without incident. He is attending group activities. CC: "Good Patient was seen and evaluated. The patient reported he feels safe on the unit and is interacting with peers. He reported having adequate appetite and sleep. The patient reports attending and participating in day groups. Per nursing no behavioral issues or overnight events reported. Patient reported that he is tolerating medications without side effects. Patient agreed to go to [place] for intensive therapy program. Objective - General Observations Appears Stated Age: Yes Stature: WNL Posture: WNL Behavior/Activity: WNL - Interaction Observations Attitude Towards Examiner: Cooperative Stated Mood: Euthymic Affect: Blunted Speech Pattern/Tone: Clear Thought Process: Coherent Perception: WNL Thought Content: WNL Hallucination Type: None Delusion Type: None - Cognitive Function Orientation: A&O x 4 Level of Consciousness: Awake - Medication Compliance Cooperative with Inpatient Medication Regimen: Yes - Group Participation Participates in Group Activities: Yes Assessment - Assessment Inpatient DSM-V Dx: F32.9 Clinical Impression: 18 y.o. single, white male with a history of major depression and one previous suicide attempt brought in on involuntary status following an admission by the patient that he was considering murdering his ex-girlfriend and then committing suicide. Plan - Plan Treatment Plan: Name: FREDDIE CASTILLO Birthdate: 2000 [id number] # Q30 minute observation with Staff pass with computer access # The patient requires inpatient admission at this time to assure safety, receive treatment and work toward stabilization. # Family meeting took place. Patient is in agreement with intensive outpatient treatment in [place] following discharge # Patient signed release for parents, who confirm no access to firearms. # Follow up with outpatient provider after release is signed #Safe Act completed # Girlfriend and police are already informed of threat and PPO issued # Collaboration with Social Work to assist with disposition and after care. #MMPI ordered indicating paranoia, anger, impulsive. #Continue clomipramine 25mg daily and monitor for Serotonin syndrome #Goals before discharge include: Eliminate/ reduce suicidal ideation Tentative Discharge Sodium 139 mmol/L (135-145) 01/04/19 01:32 Potassium 4.1 mmol/L (3.5-5.0) 01/04/19 01:32 BUN 18 mg/dL (6-24) 01/04/19 01:32 Creatinine 1.19 mg/dL (0.67-1.17) H 01/04/19 01:32 Hemoglobin A1c 5.1 % (4.0-5.6) 01/05/19 06:07 Calcium 10.0 mg/dL (8.6-10.3) 01/04/19 01:32 AST 16 U/L (13-39) 01/04/19 01:32 ALT 16 U/L (7-52) 01/04/19 01:32 Triglycerides 88 mg/dL 01/05/19 06:07 Cholesterol 171 mg/dL 01/05/19 06:07 LDL Cholesterol 119 mg/dL 01/05/19 06:07 Vital Signs Temp Pulse Resp BP Pulse Ox 99.5 F 59 20 111/68 100 01/09/19 08:00 01/08/19 08:00 01/09/19 08:00 01/09/19 08:00 01/09/19 08:00 Continued Medication Management: Continue Outpt Medication Medications: Current Medications Acetaminophen (Tylenol Tab*) 650 mg PO Q4H PRN PRN Reason: PAIN or TEMP > 101 F Al Hydrox/Mg Hydrox/Simethicone (Maalox Plus*) 30 ml PO Q4H PRN PRN Reason: INDIGESTION Clomipramine HCl (Clomipramine (Nf)) 25 mg PO 0900 [facility] Lamotrigine (Lamictal Tab(*)) 100 mg PO 0900 [facility] Last Admin: 01/08/19 08:48 Dose: 100 mg [place] Carbonate ([place] Carbonate Tab*) 300 mg PO 0900 [facility] Last Admin: 01/08/19 08:49 Dose: 300 mg [place] Carbonate ([place] Carbonate Tab*) 600 mg PO 2100 [facility] Last Admin: 01/08/19 21:47 Dose: 600 mg Lurasidone HCl (Latuda) 80 mg PO 2100 [facility] Last Admin: 01/08/19 21:46 Dose: 80 mg Multivitamins (Theragran Tab*) 1 tab PO DAILY [facility] Last Admin: 01/08/19 08:48 Dose: 1 tab Propranolol HCl (Inderal Tab*) 10 mg PO BID [facility] Last Admin: 01/08/19 21:46 Dose: 10 mg - Discharge Plan Discharge Plan: Inpatient Hospitalization
[2019-01-09] MEDS: Vitamin THERAPEUTIC TAB PO SCH (09:34)
[2019-01-09] MEDS: lamoTRIgine TAB(*) 100 MG PO SCH (09:34)
[2019-01-09] MEDS: CMCS:ClomiPRAMINE (NF) 25 MG CAP PO SCH (09:34)
[2019-01-09] MEDS: Lithium Carbonate TAB* 300 MG PO SCH ×2 (09:34→19:57)
[2019-01-09] MEDS: Propranolol TAB* 10 MG PO SCH ×2 (09:34→19:55)
[2019-01-09] MEDS: Lurasidone(*) 80 MG TAB PO SCH (21:54)
[2019-01-10 08:52] VITALS: BP 118/51
[2019-01-10] MEDS: Propranolol TAB* 10 MG PO SCH (09:12)
[2019-01-10] MEDS: lamoTRIgine TAB(*) 100 MG PO SCH (09:13)
[2019-01-10] MEDS: Lithium Carbonate TAB* 300 MG PO SCH (09:13)
[2019-01-10] MEDS: CMCS:ClomiPRAMINE (NF) 25 MG CAP PO SCH (09:13)
[2019-01-10] MEDS: Vitamin THERAPEUTIC TAB PO SCH (09:14)
--- NOTE | 2019-01-10 10:07 | DS ---
Subjective - Subjective Service Types: [id number] [facility] Day Mgmt complex over 30 min Discharge Date: 01/10/19 Subjective: CC: " Good" Patient looks forward to seeing his friends and going to [facility] in the fall. The patient was seen and evaluated before discharge today. The patient reported having adequate appetite and sleep. The patient reports attending and participating in day groups. Per nursing no behavioral issues or overnight events reported. Patient reported tolerating medications without side effects. Justification for admission: Immediate Safety. CC " I sent a text to my friend " The patient was brought to [facility] by his parents. He told a friend of his that he was suicidal and was going to hang himself , who then informed his parents of the text message that Mr. Roblero sent . He stated that he did not need to be here and that his parents are over reacting. He noted that he recently received a order of protection from his ex girlfriend upon telling a friend he was going to kill her (his ex girlfriend Shaniqua) and then himself. The [place] police were informed and called and interviewed Mr. Roblero. Upon interviewing Mr. Roblero he denied having homicidal thoughts, intent or plan towards Shaniqua. He reported that in the past he has had thoughts about hurting others but that he has not recently thought of hurting others. He denied access to firearms or stockpiles of medications. He reported improvement of sleep with Latuda and gets on average 8 hours of sleep. He reported having adequate appetite. The patient denied homicidal ideation intent or plan. The patient denied auditory and/ or visual hallucinations. He reported feeling depressed starting 10 months ago when his girlfriend broke up with him and told him to kill himself. He is refusing to have staff obtain collateral information from his parents.Although, the patients mother sent a letter to one of the social workers stating that Mr. Roblero recently saw his ex girlfriends current boyfriend at the gym and made him feel intimidated. Mr. Roblero denied recent rash or skin changes from medication. He reported being compliant with medication. Recently he has been cutting his forearm with a razor to relieve anxiety. MDD He reported feeling depressed. Denied having diminished interests which were found to be enjoyable in the past such as hanging out with friends. He reported having feelings of hopelessness, and worthlessness. He denied unintentional weight loss and appetite. Denied interruption of sleep , or feeling tired throughout the day. Denied loss of energy or lack of motivation to complete tasks. Denied recurrent thoughts of . He reported that some days he would be better off . Anxiety He reported feeling restless, high strung, or worrying too much most of the time and calms himself by cutting his wrist. He reported having thought intrusions and ruminating about his prior relationship 7 months after the relationship ended. Bipolar Denied symptoms of terry such as having many ideas at once. Denied increased talkativeness where no one can interrupt. Denied feeling irritable most of the time while having an persistent abundance of energy most of the day without the use of energy drinks, stimulants, or recreational drug use. Denied an increase in intensity in goal directed activities. Denied having the decreased need to sleep for days , having prolonged elevated heighted mood , or feeling on top of the world. Denied impulsive risky sexual encounters. Denied spending money recklessly , going on spending sprees wiping out savings. Denied impulsively traveling out of town or country, having super berrios, and unrealistic wealth or fame. Psychosis Does not endorse hearing things that other people do not hear or seeing things other people do not see. Denied feeling that TV is making references. Denied feeling that people are spying , following , or reading their thoughts. Phobias: Patient denied having excessive fear of a particular thing or situation. Eating disorders: Patient denied having excessive eating habits or feelings of guilt after eating. Denied repeated episodes of self induced vomiting after eating. PTSD Denied flashbacks, nightmares and avoidance of a prior traumatic event. PAST PSYCHIATRIC HISTORY: Prior Diagnosis : Bipolar I, Bipolar 2, unspecified mood disorder, Major depressive Disorder. History of past Psychiatric Hospitalizations: prior hospitalization May 2018 History of past suicide/homicide attempts : 2 past suicide attempts. 10 months ago attempted to hang himself with a bungee cord. August attempted to cut his wrist Denied past homicidal incidents. Outpatient follow-up: Henny Denis NP Medications: Past trials of medications include Latuda 80mg daily , lamictal 100mg daily, propranolol 10mg BID, Lombard 300mg QAM and 600mg qhs. Guardianship: None. FAMILY HISTORY: - Suicide: Denied family history of suicide. - Mental illness: Bipolar Disorder in grandfather on fathers side - Substance abuse: 2 cousins and his uncle struggle with alcohol abuse SUBSTANCE ABUSE HISTORY: Denied using alcohol, tobacco, heroin cocaine or other illicit substances. Denied recreationally abusing pills. Denied past Substance abuse treatment. SOCIAL HISTORY: - He describes his Childhood as " good." He denied a history of physical and or sexual abuse Born and raised in [place] recently graduated high school. Following his last admission he took a medical leave from college. 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 He plans to start school [employer] in the fall. - Education: High school - Living situation: Lives with parents in [place] - Relationship: Single no children - Legal history: Recent order of protection served to him from his ex girlfriend. - service history: Denied PAST MEDICAL HISTORY: Denied heart disease, diabetes, cancer and/ or other medical conditions. - Allergies: Pollen and grass no drug allergies. Physical Exam: Please see ED note Mental Status Exam on Admission APPEARANCE : 18 year old male who appears stated age. Patient is not malodourous, and appears to have fair hygiene and grooming. Multiple cuts over his left forearm BEHAVIOR: Cooperative , calm EYE CONTACT: Fair PSYCHOMOTOR ACTIVITY: No psychomotor agitation or retardation. MOVEMENTS: No abnormal movements observed. SPEECH : Normal rate, rhythm, volume and tone. MOOD : "Fine " AFFECT : Type is depressed Range is restricted with shallow depth Mood Incongruent Stable THOUGHT PROCESS: Formulated and organized in a logical, linear goal directed manner. No flight of ideas, neologism (made up words) , perseveration , tangential , loose associations , or circumstantiality. THOUGHT CONTENT: preoccupation with past relationship. PERCEPTION: No current auditory or visual hallucinations. Doesnt appear to be responding to internal cues. No evidence of depersonalization , de-realization, or illusions SUICIDALITY Recent suicidal ideation HOMICIDALITY Denied homicidal ideation, intent or plan. Insight/judgment: Poor insight and judgment ORIENTATION: Oriented to self, location, and time. Diagnosis on Admission: Major depressive Disorder, Rule out mood disorder and OCD Diagnosis on Discharge: Major depressive Disorder in partial remission. Obsessive Compulsive Disorder. Condition at the time of discharge: At the time of discharge patient showed improvement of sleep and appetite. The patient was not a danger to self or others. The patient denied suicidal ideation , intent or plan. The patient denied homicidal targets, ideation, intent or plan. This patient participated in psychosocial rehabilitation and gained some insight into problems. The patient gained insight into mental illness, triggers, and treatment. The patient took medication as prescribed. The patient denied side effects of medication and objective signs of side effects were not evident. Therapy Resources were offered to the patient. Patient was given a supply of prescriptions at the time of discharge. The patient plans to attend follow up care with the follow up arrangements that were discussed and put in place. Patient was asked to keep appointments as scheduled, take medication as prescribed, have routine follow up care with their primary care physician and refrain from any use of alcohol or drugs. Objective - General Observations Appearance: Neat Appears Stated Age: Yes Stature: WNL Posture: WNL Eye Contact: Average Behavior/Activity: WNL - Interaction Observations Attitude Towards Examiner: Cooperative Attitude Towards Parent/Guardian: Positive Interaction Stated Mood: Euthymic Affect: Blunted Speech Pattern/Tone: Clear Thought Process: Coherent Perception: WNL Thought Content: WNL Hallucination Type: None Delusion Type: None - Cognitive Function Orientation: A&O x 4 Level of Consciousness: Awake Cognition: WNL - Medication Compliance Cooperative with Inpatient Medication Regimen: Yes - Group Participation Participates in Group Activities: Yes Treatment Course & Assessment Clinical Course & Impression: Hospital course part A: 18 y.o. single, white male with a history of major depression and one previous suicide attempt brought in on involuntary status following an admission by the patient that he was considering murdering his ex- girlfriend and then committing suicide. Hospital course part B: Labs ordered included CBC, CMP, UDS, TSH, HBA1c, TSH, Toxicology screen, Urine analysis, and lipid profile. Labs were reviewed and did not require the need for further evaluation. Vital signs were monitored during the course of admission.MMPI ordered indicating paranoia, anger, impulsive. The patient was admitted to the adult behavioral unit and placed on 15 minute check for safety. At a later time the patient was on Q30 minute observation and staff pass privileges. With those limits being extended , there were no occurrence of behavioral incidents. The patient did well on the unit and went to groups. Interacted with peers had adequate sleep and regular appetite. Tolerated medication changes without side effects. Group therapy and services were offered. The risks, benefits, and alternative treatment options were discussed as well as of the risks of refusing treatment. Treatment associated risks discussed. After this discussion made an acknowledgement of this understanding. Follow up care appointments were put in place for follow up care. The importance of monitoring for metabolic changes was discussed and acknowledgement of this understanding was made. Improvements in patient from the time of admission include: Improved affect, sleep and decrease in anxiety. No longer suicidal and no longer having feelings of hopelessness. The patient expressed readiness for discharge home. The patient presents with a broader range of affect, and the absence of depressed mood, delusions, perceptual disturbances. The patient denied suicidal and or homicidal ideation intent or plan. Overall, the patient responded well to inpatient treatment as evidenced by their report of strengthening of coping mechanisms, reduced distress, and more positive outlook on circumstances. Of note there was an improvement of recognizing how emotional state can effect mood and behavior. Safety precautions were put in place which included involving the patient and their family to closely monitor for changes in mental state. In addition, implementing follow up care, screening for the need to remove/securing firearms , weapons and stockpile of medications. Patient/ family instructed to immediately call 911 should any safety concerns arise. The patient was advised of the 24 hour / 7 days a week availability of the emergency room and to call 911 in the event of an emergency such as being suicidal and/ or homicidal. The patient was informed of the contact information for [facility], Suicide Prevention and Crisis Services, National Suicide Prevention Lifeline, [facility], Alcoholics Anonymous, and [facility]. Medications started included clomipramine 25mg qhs. His home medications were continued. Contact with his outpatient provider was made and she plans to taper down some of his medications and begin to increase clomipramine by 25m every week for the next 2-3 weeks. Patient is in agreement with intensive outpatient treatment in [place] at [facility] following discharge Family meeting took place before discharge. The family confirmed that the patient is at their baseline and is in agreement with the discharge plan. They visited him the night before discharge and noticed improvement of affect and more receptive of listening to what they had to say. They were advised about the warning signs associated with decompensation and progression of mental illness. They were informed of the lethality of medication in event of overdose. The family plans to manage medications and confirmed no access to firearms.Safe Act completed. Patient did not express homicidal ideation or target toward his ex-girlfriend during the course of his admission. Police and ex girlfriend already informed of prior homicidal remarks that were made before admission. Patient will be discharged to live at home. Follow up appointment With Henny Denis Monday at 4pm 01/14/19. Patient informed of follow up appointment times. See more details for follow up care in the discharge plan. Risk factors: , single, history of mental illness. Prior history of suicide attempt. Recent Relationship change. Patient has no history of violence. Protective factors: Currently no suicidal ideation, intent or plan. Has strong support system. No history of service. Currently no feelings of hopelessness, not in an occupation of social isolation, doesnt have multiple medical conditions, no family history of suicide, doesnt have access to firearms. Doesnt have command hallucinations and or psychotic features at this time. No history of substance abuse. No history of alcohol abuse. Not a anniversary of a loss of a loved one. Currently future orientated. Patient engaged in treatment and compliant with medication. Sodium 139 mmol/L (135-145) 01/04/19 01:32 Potassium 4.1 mmol/L (3.5-5.0) 01/04/19 01:32 BUN 18 mg/dL (6-24) 01/04/19 01:32 Creatinine 1.19 mg/dL (0.67-1.17) H 01/04/19 01:32 Hemoglobin A1c 5.1 % (4.0-5.6) 01/05/19 06:07 Calcium 10.0 mg/dL (8.6-10.3) 01/04/19 01:32 AST 16 U/L (13-39) 01/04/19 01:32 ALT 16 U/L (7-52) 01/04/19 01:32 Triglycerides 88 mg/dL 01/05/19 06:07 Cholesterol 171 mg/dL 01/05/19 06:07 LDL Cholesterol 119 mg/dL 01/05/19 06:07 Vital Signs Temp Pulse Resp BP Pulse Ox 98.4 F 58 16 118/51 99 01/10/19 08:51 01/10/19 08:51 01/10/19 08:51 01/10/19 08:51 01/10/19 08:51 Merits Inpatient Hospitalization: No Clear for Discharge: Adequate Clinical Respons Inpatient DSM-V Dx: F32.9 Discharge Planning - Discharge Planning Discharge Plan: Outpatient Follow Up Outpatient Program: Private Clinician(s) Recommendations for Continuing Care: Medication Management Medications: Current Medications Acetaminophen (Tylenol Tab*) 650 mg PO Q4H PRN PRN Reason: PAIN or TEMP > 101 F Al Hydrox/Mg Hydrox/Simethicone (Maalox Plus*) 30 ml PO Q4H PRN PRN Reason: INDIGESTION Clomipramine HCl (Clomipramine (Nf)) 25 mg PO 0900 [facility] Last Admin: 01/10/19 09:13 Dose: 25 mg Lamotrigine (Lamictal Tab(*)) 100 mg PO 0900 [facility] Last Admin: 01/10/19 09:13 Dose: 100 mg Lombard Carbonate (Lombard Carbonate Tab*) 300 mg PO 0900 [facility] Last Admin: 01/10/19 09:13 Dose: 300 mg Lombard Carbonate (Lombard Carbonate Tab*) 600 mg PO 2100 [facility] Last Admin: 01/09/19 19:57 Dose: 600 mg Lurasidone HCl (Latuda) 80 mg PO 2100 [facility] Last Admin: 01/09/19 21:54 Dose: 80 mg Multivitamins (Theragran Tab*) 1 tab PO DAILY [facility] Last Admin: 01/10/19 09:14 Dose: Not Given Propranolol HCl (Inderal Tab*) 10 mg PO BID [facility] Last Admin: 01/10/19 09:12 Dose: 10 mg Discharge Planning: Prescriptions provided for discharge [x] Yes [] No Follow up care details as per social work arrangements. Patient response to discharge plan: [x] eager for discharge [] agreeable with discharge plan [] ambivalent about discharge [] disagrees with discharge today
--- NOTE | 2019-01-10 14:11 | CONS ---
PSYCHOLOGICAL REPORT: DATE OF CONSULT: 01/09/19 PROCEDURE CODE: [id number] REASON FOR REFERRAL: Quincy was referred for personality testing secondary to concerns regarding possible lethality secondary to expressed homicidal and suicidal thoughts as well as concerns regarding characterological vulnerabilities consistent with either borderline personality function or antisocial personality disorder. TEST ADMINISTERED: Quincy completed the [place] Multiphasic Personality Inventory-2 (MMPI-2) and was given feedback in individual conversation. Quincy was also seen on 2 occasions in the context of cognitive behavioral group psychotherapy led by this examiner while he remained inpatient. RELEVANT HISTORY: Quincy is a 18-year-old male who was hospitalized secondary to concerns regarding expressed homicidal thought towards an ex- girlfriend as well as suicidal thoughts and behaviors. Concerns centered around an experience Quincy had while apparently working out in a gym where he encountered his ex-girlfriend's now boyfriend whom he felt threatened by. He had told a friend that he had thoughts of hanging himself and had sent some texts, which were concerning. He was hospitalized secondary to concerns regarding both homicidal and suicidal rumination. While here, Quincy has been compliant with efforts to treat and assess, but began declining to attend groups , describing how the first 3 days here were useful, which gave him a "hard stop, " but subsequent hospitalization he felt was less productive and not particularly informative. Quincy impresses as at times engaging thoughtfully in programming, having attended group where borderline personality was discussed. Quincy described endorsing all 9 of the discussed symptoms of borderline personality disorder, but did not impress as following through with subsequent discussion or further group attendance. Currently, Quincy presents with fair affect that is euthymic in nature. His speech is clear and coherent, and he denies continuing thoughts of either homicidal or suicidal ideation. He has agreed to attend an intensive outpatient program that addresses borderline personality disorder in the [place], [place] area. Concerns remain about chronic emotional stress and prior self-injury that is characterized by symmetrical cutting on his left forearm. Hopefully, Quincy is able to cease and desist from further self-injury and can begin to accept the loss of his ex-girlfriend and move forward without being concerned with thoughts of revenge. TEST RESULTS: Quincy provides a fairly distressed profile on this administration of the MMPI-2, having elevated all 3 of the emotional duress scales and scoring very lowly on the emotional coping and self-esteem scales. This volatility configuration is thought to be consistent with a "cry for help" as he is endorsing very high levels of emotional stress and not feeling able to cope with it adequately. He subsequently elevates 8 of the 10 clinical scales with concerns pointing towards possible sociopathy with a high point scale score on the psychopathic deviate coupled with an elevated hypomania scale. Feedback with Quincy emphasizing importance of understanding negative expression of impulsivity, especially in the context of possible lethality. Further discussion addressed similarly elevated paranoia and schizophrenia scales, emphasizing how when normal people endorse such symptomatology they are describing impairment in the interpersonal domain of functioning. People who are not psychotic who score in these ranges are described as feeling emotionally alienated from others and do not feel supported or understood. He also elevates a social introversion scale to a minor degree with discussion addressing how this further can impair social function if there is a disinterest being around other people. IMPRESSION AND RECOMMENDATIONS: Discussion with Quincy in terms of diagnostic features emphasize personality symptomatology consistent with other antisocial and/or borderline personality function. Quincy certainly responds positively to discussion addressing borderline personality features rather than that of sociopathy. Positive prognostic indicators are that although his depression scale was elevated, it is to a very minimal degree and he seems to respond to the structure of an inpatient unit rather quickly. He is able to voice the insight that he needed to be from decision making for a period of time , although he did not endorse benefitting from more clinical oriented group topics or discussion. Concerns moving forward are about defensiveness in this context with the hopes that he will respond in a more consistent fashion with increased structure and further participation in therapeutic programming. Concerns regarding lethality are diminished in the acute term and Quincy is able to express prosocial thoughts and goals in a spontaneous fashion. [id number]/[facility] #: [id number] SANA
[2019-01-10] MEDS ORDERED: CLOMIPRAMINE 25 MG PO SCH (21:00)
== END 2019-01-10 15:30 | disposition home or self-care (01) | DRG 754 ==
LOC: ED 23:39 → BSU 01-04 04:52
PROVIDERS: ADMIT Psychiatry & Neurology Psychiatry; ATTEND Psychiatry & Neurology Psychiatry
DX: F32.9 Major depressive disorder, single episode, unspecified (principal); R45.851 Suicidal ideations; F42.9 Obsessive-compulsive disorder, unspecified; F41.9 Anxiety disorder, unspecified; J30.1 Allergic rhinitis due to pollen; F50.9 Eating disorder, unspecified; R45.850 Homicidal ideations; Z81.8 Family history of other mental and behavioral disorders; Z91.5 Personal history of self-harm; Z81.1 Family history of alcohol abuse and dependence; Z68.30 Body mass index [BMI] 30.0-30.9, adult
CPT/HCPCS: 36415; 80053; 80061; 80178; 80307; 80320; 80329; 81003; 83036; 84443; 85025; 96130; 99222; 99231; 99233; 99238; 99285; A9270-GY; G0480

== ENCOUNTER 2019-06-07 21:01 | Emergency (ER) | payer BC ==
[2019-06-07 21:08] VITALS: BP 121/63
--- NOTE | 2019-06-07 21:28 | UC ---
Skin Complaint HPI - HPI Summary HPI Summary: 18 year old male with no PMH presents after stabbing left hand with knife while cutting brownies. Dressed at home. blieves up to date on tetanus, will follow up with pedatrician tomorrow to ensure. no wound healing problems. mild decreased ROM of thumb due to swelling, sensation intact. 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 Onset/Duration: Sudden Onset, Lasting Minutes Skin Exposure Onset/Duration: Minutes Ago Timing: Constant Onset Severity: Moderate Current Severity: Moderate Pain Intensity: 3 Pain Scale Used: 0-10 Numeric Location: Discrete - left hand thenar emminence Character: Swelling, Pain, Raised Aggravating Factor(s): Nothing Alleviating Factor(s): Nothing Associated Signs & Symptoms: Positive: Tenderness - Allergy/Home Medications Allergies/Adverse Reactions: Allergies Allergy/AdvReac Type Severity Reaction Status Date / Time No Known Allergies Allergy Verified 06/07/19 21:08 Home Medications: Home Medications ClomiPRAMINE (NF) [Clomipramine (NF)] 50 mg PO 2100 06/07/19 [History Confirmed 06/07/19] PMH/Surg Hx/FS Hx/Imm Hx Previously Healthy: Yes - Surgical History Surgical History: Yes Surgery Procedure, Year, and Place: L knee in 2016 - Family History Known Family History: Positive: Other - Seasonal depression Negative: Diabetes - Social History Alcohol Use: Weekly Substance Use Type: Marijuana Substance Use Comment - Amount & Last Used: daily Smoking Status (MU): Never Smoked Tobacco - Immunization History Most Recent Influenza Vaccination: 06/24/18 Most Recent Tetanus Shot: unknown Most Recent Pneumonia Vaccination: never Review of Systems All Other Systems Reviewed And Are Negative: Yes Constitutional: Positive: Negative Skin: Positive: Other - laceration left hand ENT: Positive: Negative Musculoskeletal: Positive: Arthralgia, Decreased ROM, Edema, Myalgia Is Patient Immunocompromised?: No Physical Exam Triage Information Reviewed: Yes Appearance: Well-Appearing, No Pain Distress, Well-Nourished Vital Signs: Initial Vital Signs Temp 97.8 F 06/07/19 21:04 Pulse 75 06/07/19 21:04 Resp 16 06/07/19 21:04 BP 121/63 06/07/19 21:04 Pulse Ox 100 06/07/19 21:04 Vital Signs Reviewed: Yes Eyes: Positive: Conjunctiva Clear ENT: Positive: Hearing grossly normal Respiratory: Positive: Other: - patient became diaphoretic during cleansing, improved with supine Neurological Exam: Normal Neurological: Positive: Other: - left hand- SITLT at DIP all fingers, full ROM of 2-5th, minimal decreased internal movement patient believes due to swelling, pain. after injection, mild decreased sensation "pins and needles" at lateral thumb. rad/ ulnar pulses 2+. Strength intact throughout. Psychological Exam: Normal Skin: Positive: Other - 3 cm laceration, full thickness, to left thenar emminence. bleeding controlled. Laceration Repair - Laceration Repair 1 Procedure Summary: no complications, tolerated well, good pain control with lidocaine Description: Linear Laceration Size After Repair: Length (cm) - 3, Width (mm) - 5, Depth (mm) - 7 Debridement: no Modified For Repair: Yes Anesthesia Used: 2.0% Lido Additive Used (in ml): Epi Cleansing Completed Via Routine Prep: Yes Irrigation With Pressure Irrigation Device: Yes Closure Material: Sutures - 6 Closure Method: Single Layer Suture Of: Skin Suture Type: Nylon Course/Dx - Course Course Of Treatment: - Keep dressing on for 24 hours - Redress with gauze, band-aide/ Koban and wrist splint to prevent movement and increase healing. Keep splint on for 2-3 days - Motrin/ tylenol as needed for pain - Follow up with orthopedics within 2-3 days if numbness/ tingling does not improve or you notice decreased movement of your fingers - Remove sutures x 7-10 days, may return here or follow up with primary - Return for any redness, swelling, increased pain, fever, decreased movement - ANtibiotics to prevent infection as prescribed - Diagnoses Provider Diagnosis: Laceration of left hand Discharge ED - Sign-Out/Discharge Documenting (check all that apply): Patient Departure All imaging exams completed and their final reports reviewed: No Studies - Discharge Plan Condition: Good Disposition: HOME Prescriptions: Cephalexin CAP* [Keflex CAP*] 500 mg PO TID #15 cap Patient Education Materials: Care For Your Stitches (ED), Laceration (ED) Forms: *Work Release Referrals: Mira Segura NP [Primary Care Provider] - Crystal Mondragon MD [Medical Doctor] - Additional Instructions: - Keep dressing on for 24 hours - Redress with gauze, band-aide/ Koban and wrist splint to prevent movement and increase healing. Keep splint on for 2-3 days - Motrin/ tylenol as needed for pain - Follow up with orthopedics within 2-3 days if numbness/ tingling does not improve or you notice decreased movement of your fingers - Remove sutures x 7-10 days, may return here or follow up with primary - Return for any redness, swelling, increased pain, fever, decreased movement - ANtibiotics to prevent infection as prescribed - Billing Disposition and Condition Condition: GOOD Disposition: Home
[2019-06-07] MEDS ORDERED: Lidocaine 2% w EPI 1:100,000* 20 ML MDV VIAL INJ ONE (21:29)
[2019-06-07] MEDS ORDERED: Cephalexin CAP* 500 MG PO ONE (21:59)
== END 2019-06-07 22:18 | disposition home or self-care (01) ==
LOC: UCEAST 21:01
DX: S61.412A Laceration without foreign body of left hand, initial encounter (principal); W26.0XXA Contact with knife, initial encounter; Y92.9 Unspecified place or not applicable
CPT/HCPCS: 12002; 99212; A9270-GY; G0463